=== PATIENT | male | born 1980 | race Caucasian/White ===

== ENCOUNTER 2019-06-18 15:16 | Emergency (ER) | payer OTHER ==
[2019-06-18] MEDS ORDERED: Alum Hydrox/Mag Hydrox/Simeth 30 ML, Lidocaine 2% 15 ML PO ONE ×2 (16:03)
[2019-06-18] MEDS ORDERED: Sodium Chloride 0.9% 10 ML Syringe FLUSH PRN (16:03)
--- NOTE | 2019-06-18 16:18 | EDM.PDOC ---
ED HPI GENERAL MEDICAL PROBLEM - General Chief Complaint: Abdominal Pain Stated Complaint: CHEST AND ABD PAIN Time Seen by Provider: 06/18/19 15:37 Source of Information: Reports: Patient, RN Notes Reviewed History Limitations: Reports: No Limitations - History of Present Illness INITIAL COMMENTS - FREE TEXT/NARRATIVE: Patient is a 38-year-old male who presents to this ED for the evaluation of upper abdominal pain and chest pressure. Patient notes that he has been having issues with this for the past few weeks, intermittently. Patient notes that he does not have a primary care provider. He does state he has a history of heartburn, and has been taking Nexium 20 mg daily for the last few years. He states this is been working pretty well for his heartburn and GERD-like symptoms. But he states over the past few days however he has had increased stomach pressure/chest pain, he has no appetite. He states that it does not feel very comfortable to eat and that he develops pain right/pressure after eating. He does note some generalized fatigue with the symptoms as well. He notes a history of a hiatal hernia, that was diagnosed by EGD in 2009 in [place]. He also notes that he has had pH studies done, and these were within normal limits. The patient states that he himself does not have any issues with blood pressure, but states that his father had heart issues, and he did suffer from a myocardial infarction but still is alive. The patient denies any fevers or chills that has been having, or any nausea vomiting or diarrhea. He states he did have a normal bowel movement today. He does note that he has been under a little bit more increased stress that he normally has. He denies any cigarette use, or drug use, but states he has a few beers here and there, but does not have every day alcohol use history. Upper Abdomen Pain Score (Numeric/FACES): 4 - Related Data Allergies Allergy/AdvReac Type Severity Reaction Status Date / Time No Known Allergies Allergy Verified 06/18/19 15:34 Home Meds: Home Meds Esomeprazole Magnesium [Nexium 24Hr] 20 mg PO DAILY 06/18/19 [History] LORazepam [Ativan] 1 mg PO TID PRN #12 tab 06/18/19 [Rx] Past Medical History Gastrointestinal History: Reports: Hiatal Hernia Genitourinary History: Reports: Other (See Below) Other Genitourinary History: has only right kidney Musculoskeletal History: Reports: Other (See Below) Other Musculoskeletal History: issues with feet and arches Social & Family History - Tobacco Use Smoking Status *Q: Never Smoker - Caffeine Use Caffeine Use: Reports: Coffee, Tea - Recreational Drug Use Recreational Drug Use: No ED ROS GENERAL - Review of Systems Review Of Systems: See Below Constitutional: Reports: Decreased Appetite (states that he has pressure shortly after eating). Denies: Fever, Chills, Weight Loss HEENT: Reports: No Symptoms Respiratory: Denies: Shortness of Breath Cardiovascular: Reports: Chest Pain (chest pressure) Endocrine: Reports: No Symptoms GI/Abdominal: Reports: Abdominal Pain (upper abdominal pain/pressure), Other ( heartburn/GERD). Denies: Constipation, Diarrhea, Nausea, Vomiting : Denies: Dysuria Musculoskeletal: Reports: No Symptoms Skin: Reports: No Symptoms Neurological: Denies: Dizziness Psychiatric: Reports: No Symptoms Hematologic/Lymphatic: Reports: No Symptoms Immunologic: Reports: No Symptoms ED EXAM, GI/ABD - Physical Exam Exam: See Below Exam Limited By: No Limitations General Appearance: Alert, WD/WN, No Apparent Distress Eyes: Bilateral: Normal Appearance Ears: Normal External Exam Nose: Normal Inspection Throat/Mouth: Normal Inspection, Normal Lips, Normal Teeth, Normal Gums, Normal Oropharynx, Normal Voice, No Airway Compromise Head: Atraumatic Neck: Normal Inspection Respiratory/Chest: No Respiratory Distress, Lungs Clear, Normal Breath Sounds, No Accessory Muscle Use, Chest Non-Tender Cardiovascular: Normal Peripheral Pulses, Regular Rate, Rhythm, No Edema, No Murmur GI/Abdominal Exam: Normal Bowel Sounds, Soft, No Distention, No Mass, Tender ( entire upper abdomen is tender to palpation) Extremities: Normal Inspection, Normal Capillary Refill Neurological: Alert, Oriented, Normal Cognition, No Motor/Sensory Deficits Psychiatric: Normal Affect, Normal Mood Skin Exam: Warm, Dry, Intact, Normal Color, No Rash Course - Vital Signs Last Recorded V/S: Last Vital Signs Temp 98.0 F 06/18/19 15:28 Pulse 70 06/18/19 15:28 Resp 14 06/18/19 15:28 BP 153/90 H 06/18/19 15:28 Pulse Ox 153 H 06/18/19 15:28 - Orders/Labs/Meds Orders: Active Orders 24 hr Category Date Time Status EKG Documentation Completion [RC] STAT Care 06/18/19 16:02 Ordered Peripheral IV Care [RC] . DIRECTED Care 06/18/19 16:04 Ordered Sodium Chloride 0.9% [Saline Flush] Med 06/18/19 16:03 Active 10 ml FLUSH ASDIRECTED PRN Peripheral IV Insertion Adult [OM.PC] Stat Oth 06/18/19 16:02 Ordered Medication Orders Sodium Chloride (Saline Flush) 10 ml FLUSH ASDIRECTED PRN PRN Reason: Keep Vein Open Labs: Laboratory Tests 06/18/19 06/18/19 Range/Units 16:21 16:21 WBC 8.24 (4.23-9.07) K/mm3 RBC 5.50 (4.63-6.08) M/mm3 Hgb 16.1 (13.7-17.5) gm/dl Hct 46.1 (40.1-51.0) % MCV 83.8 (79.0-92.2) fl MCH 29.3 (25.7-32.2) pg MCHC 34.9 (32.2-35.5) g/dl RDW Std Deviation 40.5 (35.1-43.9) fL Plt Count 376 H (163-337) K/mm3 MPV 8.2 L (9.4-12.3) fl Neut % (Auto) 66.7 (34.0-67.9) % Lymph % (Auto) 24.6 (21.8-53.1) % [place] % (Auto) 7.2 (5.3-12.2) % Eos % (Auto) 1.0 (0.8-7.0) Baso % (Auto) 0.4 (0.1-1.2) % Neut # (Auto) 5.50 H (1.78-5.38) K/mm3 Lymph # (Auto) 2.03 (1.32-3.57) K/mm3 [place] # (Auto) 0.59 (0.30-0.82) K/mm3 Eos # (Auto) 0.08 (0.04-0.54) K/mm3 Baso # (Auto) 0.03 (0.01-0.08) K/mm3 Sodium 142 (136-145) mEq/L Potassium 4.2 (3.5-5.1) mEq/L Chloride 106 (98-107) mEq/L Carbon Dioxide 26 (21-32) mEq/L Anion Gap 14.2 (5-15) BUN 13 (7-18) mg/dL Creatinine 1.0 (0.7-1.3) mg/dL Est Cr Clr Drug Dosing 95.00 mL/min Estimated GFR (MDRD) > 60 (>60) mL/min BUN/Creatinine Ratio 13.0 L (14-18) Glucose 96 (74-106) mg/dL Calcium 9.6 (8.5-10.1) mg/dL Total Bilirubin 0.6 (0.2-1.0) mg/dL GGT 27 (15-85) U/L AST 16 (15-37) U/L ALT 14 L (16-63) U/L Alkaline Phosphatase 78 (46-116) U/L Total Protein 8.0 (6.4-8.2) g/dl Albumin 4.1 (3.4-5.0) g/dl Globulin 3.9 gm/dL Albumin/Globulin Ratio 1.1 (1-2) Lipase 138 (73-393) U/L Meds: Medications Generic Name Dose Route Start Last Admin Trade Name Freq PRN Reason Stop Dose Admin Sodium Chloride 10 ml 06/18/19 16:03 Saline Flush FLUSH ASDIRECTED PRN Keep Vein Open Discontinued Medications Generic Name Dose Route Start Last Admin Trade Name Freq PRN Reason Stop Dose Admin Al Hydroxide/Mg Hydroxide 30 0 ml 06/18/19 16:03 06/18/19 16:31 ml/ Lidocaine HCl 15 ml PO 06/18/19 16:04 45 ml ONETIME ONE Administration - Re-Assessments/Exams Free Text/Narrative Re-Assessment/Exam: 06/18/19 16:45 Patient presents to the ED for evaluation of upper abdominal pain, chest pressure. I believe this might be some sort of heartburn or ulcer type pain in nature. Patient is already on 20 mg esomeprazole. He was wondering if he should have this medication increased. He may build to take 40 mg daily, but he does not have a primary care provider, and I did urge him that he needs to set up with a provider to follow his health. He is understanding of this. I did order EKG, chest x-ray, lipase, GGT, CBC, CMP and a GI cocktail for initial management. He may need to have an EGD repeated for evaluation of ulcers. We will have him follow-up with a primary care provider and general surgery for these tests. 06/18/19 17:05 Patient's chest x-ray is done, and demonstrates no acute abnormalities identified. Labs are also done, and are within normal limits. At this time there is no acute abnormalities being identified. As stated above, I do believe the patient might be suffering from an ulcer, I will have him follow-up with a primary care provider and possible surgery consult for upper GI consult. Departure - Departure Time of Disposition: 17:48 Disposition: Home, Self-Care 01 Condition: Fair Clinical Impression: Anxiety Gastritis Qualifiers: Gastritis type: unspecified gastritis Chronicity: acute Gastritis bleeding: presence of bleeding unspecified Qualified Code(s): K29.00 - Acute gastritis without bleeding - Discharge Information *PRESCRIPTION DRUG MONITORING PROGRAM REVIEWED*: No *COPY OF PRESCRIPTION DRUG MONITORING REPORT IN PATIENT ABENA: No Prescriptions: LORazepam [Ativan] 1 mg PO TID PRN #12 tab PRN Reason: Anxiety Instructions: Gastritis, Adult, [id number] Referrals: PCP,None [Primary Care Provider] - Forms: ED Department Discharge Additional Instructions: You were evaluated in the ER today regarding your upper abdominal pain and chest pressure. Your work-up in the ER today, demonstrated no focal abnormalities, your EKG was within normal limits, your chest x-ray is also within normal limits. Your laboratory evaluation demonstrated no acute abnormalities. You are not having a heart attack at today's ER visit. Your symptoms are most likely due to an ulcer, however this cannot be diagnosed in the ER. This needs to be done by an upper endoscopy. Recommend that you follow-up with a primary care provider of your choice, our [facility] clinic is [phone], the [facility] number is [phone]. Any family practice provider will be able to provide you with the services. Please do so as soon as possible for further management. You will also likely need a referral to general surgery for an EGD. Recommend that you take 40 mg Nexium daily, for further management of your symptoms. Dietary restriction recommendations suggested as follows: fatty foods , caffeine, chocolate, spicy foods, food with high fat content, carbonated beverages, and peppermint) You were given a few tablets of Ativan for management of your anxiety, please take 1/2 - 1 tab 3 times daily for anxiety. Please return to the ER at anytime if your symptoms change or worsen. - My Orders Last 24 Hours: My Active Orders 06/18/19 16:02 EKG Documentation Completion [RC] STAT Peripheral IV Insertion Adult [OM.PC] Stat 06/18/19 16:03 Sodium Chloride 0.9% [Saline Flush] 10 ml FLUSH ASDIRECTED PRN 06/18/19 16:04 Peripheral IV Care [RC] . DIRECTED - Assessment/Plan Last 24 Hours: My Active Orders 06/18/19 16:02 EKG Documentation Completion [RC] STAT Peripheral IV Insertion Adult [OM.PC] Stat 06/18/19 16:03 Sodium Chloride 0.9% [Saline Flush] 10 ml FLUSH ASDIRECTED PRN 06/18/19 16:04 Peripheral IV Care [RC] . DIRECTED
--- NOTE | 2019-06-18 16:53 | CR ---
Chest: Two views of the chest were obtained. Comparison: No prior chest x-ray. Heart size and mediastinum are normal. Lungs are clear. Bony structures are unremarkable. Impression: 1. Nothing acute is seen on two-view chest x-ray. Diagnostic code #1 This report was dictated in [place] Standard Time
== END 2019-06-18 18:03 | disposition home or self-care (01) ==
LOC: JD.ED 15:16
DX: K29.00 Acute gastritis without bleeding (principal); F41.9 Anxiety disorder, unspecified; Z79.899 Other long term (current) drug therapy
CPT/HCPCS: 36415; 71046; 80053; 82977; 83690; 85025; 93005; 99285; A9270; 93010; 99283